=== PATIENT | male | born 1995 | race Hispanic/Latino ===

== ENCOUNTER 2019-09-22 15:24 | Emergency (ER) | payer SELFPAY ==
[2019-09-22] MEDS ORDERED: Acetaminophen 500 MG TAB ONE (15:48)
[2019-09-22] MEDS ORDERED: Ibuprofen 800 MG TAB ONE (15:48)
[2019-09-22] MEDS ORDERED: Oseltamivir 75 MG CAP ONE (15:48)
== END 2019-09-22 16:05 | disposition home or self-care (01) ==
LOC: MADERS 15:24
DX: J11.1 Influenza due to unidentified influenza virus with other respiratory manifestations (principal)
CPT/HCPCS: 99283

== ENCOUNTER 2021-02-01 19:52 | Emergency (ER) | payer SELFPAY | END 2021-02-01 21:10 | disposition home or self-care (01) | LOC: MADERS 19:52 | DX: R10.32 Left lower quadrant pain (principal); K59.00 Constipation, unspecified | CPT/HCPCS: 74018; 74019 ==